=== PATIENT | female | born 2000 | race Two or more races ===

== ENCOUNTER 2023-04-15 10:48 | Emergency (ER) | payer OTHER ==
[~2023-04-15] VITALS: Ht 152.4 cm; Wt 49.9 kg
[~2023-04-15 10:48] MED LIST: [UNRECOGNIZED DRUG - REMARK]
== END 2023-04-15 17:24 | disposition home or self-care (01) ==
LOC: ER 10:48
DX: H00.016 Hordeolum externum left eye, unspecified eyelid (principal); Z88.6 Allergy status to analgesic agent

== ENCOUNTER 2023-07-04 14:32 | Emergency (ER) | payer OTHER ==
[~2023-07-04] VITALS: Ht 152.4 cm; Wt 49.9 kg
[2023-07-04] MEDS ORDERED: PRENA1 TRUE CO1 EACH (15:48)
[2023-07-04] MEDS ORDERED: FOLIC ACID0.8 M1 (15:48)
[2023-07-04 17:16] LABS: HEMATOCRIT 35.7 % (36.0-45.00); HEMOGLOBIN 12.6 g/dL (12.0-15.00); MEAN CELL VOLUME 87.7 fL (80.00-100.00); MEAN CORPUSCULAR HEMOGLOBIN 30.9 pg (27.00-32.0); MEAN CORPUSCULAR HGB CONC 35.2 g/dl (32.0-36.0); PLATELET COUNT 257 K/uL (150-450); RED BLOOD COUNT 4.07 M/uL (4.00-6.00); RED CELL DISTRIBUTION WIDTH 14.3 % (11.5-14.5)
[2023-07-04 17:30] LABS: CALCIUM 9.3 mg/dL (8.5-10.1); CREATININE SERUM 0.51 mg/dL (0.55-1.02); GFR 146.93; POTASSIUM 3.22 mEq/L (3.5-5.1)
[2023-07-04 18:10] LABS: URINE APPEARANCE Cloudy; URINE BILIRRUBIN Negative (NEGATIVE); URINE BLOOD Negative; URINE COLOR Yellow; URINE GLUCOSE Negative (NEGATIVE); URINE LEUKOCYTE Trace; URINE NITRATE Negative; URINE PROTEIN Negative (NEGATIVE)
[2023-07-04 18:14] LABS: URINE EPITHELIAL CELLS 170.2 uL (0.0-38.8); URINE RBC 3.3 uL (0.0-20.8); URINE WBC 159.5 uL (0.0-23.2)
[2023-07-04] MEDS ORDERED: PEPCID AC20 MG PO (18:52)
[2023-07-04] MEDS ORDERED: ZOFRAN8 MG PO (18:52)
== END 2023-07-04 19:12 | disposition home or self-care (01) ==
LOC: ER 14:32
PROVIDERS: General Practice
DX: O26.891 Other specified pregnancy related conditions, first trimester (principal); R11.10 Vomiting, unspecified; R10.84 Generalized abdominal pain; Z3A.12 12 weeks gestation of pregnancy

== ENCOUNTER 2023-09-19 12:59 | Outpatient (CLI) | payer OTHER ==
[~2023-09-19 12:59] MED LIST changes: +FOLIC ACID0.8 M1; +PEPCID AC20 MG PO; +PRENA1 TRUE CO1 EACH; +ZOFRAN8 MG PO
== END 2023-09-19 13:00 | disposition home or self-care (01) ==
LOC: PRENATAL 12:59
PROVIDERS: ATTEND Obstetrics & Gynecology Maternal & Fetal Medicine
DX: O35.3XX0 Maternal care for (suspected) damage to fetus from viral disease in mother, not applicable or unspecified (principal); O44.00 Complete placenta previa NOS or without hemorrhage, unspecified trimester; Z3A.21 21 weeks gestation of pregnancy

== ENCOUNTER 2024-01-12 08:45 | Inpatient (IN) | payer OTHER ==
[~2024-01-12] VITALS: Ht 152.4 cm; Wt 2.7 kg
[2024-01-12] MEDS ORDERED: CEFAZOLIN SODIUM 1,000 MG VIAL IV SCH (09:00)
[2024-01-12] MEDS ORDERED: RINGERS SOLUTION,LACTATED 1,000 ML IV SCH (09:00)
[2024-01-12 09:26] LABS: PH,URINE 6.5 (5.0-8.0); URINE APPEARANCE Clear; URINE BILIRRUBIN Negative (NEGATIVE); URINE BLOOD Negative; URINE COLOR Yellow; URINE GLUCOSE Negative (NEGATIVE); URINE LEUKOCYTE Negative; URINE NITRATE Negative; URINE PROTEIN Negative (NEGATIVE); URINE UROBILINOGEN 0.2 E.U./dl
[2024-01-12 09:27] LABS: HEMATOCRIT 31.7 % (36.0-45.00); HEMOGLOBIN 10.7 g/dL (12.0-15.00); MEAN CORPUSCULAR HEMOGLOBIN 28.1 pg (27.00-32.0); MEAN CORPUSCULAR HGB CONC 33.8 g/dl (32.0-36.0); PLATELET COUNT 339 K/uL (150-450); RED BLOOD COUNT 3.82 M/uL (4.00-6.00); RED CELL DISTRIBUTION WIDTH 14.2 % (11.5-14.5)
[2024-01-12 09:28] LABS: URINE BACTERIA 35.2 uL (0.0-1933); URINE EPITHELIAL CELLS 7.8 uL (0.0-38.8); URINE RBC 6.1 uL (0.0-20.8); URINE WBC 7.1 uL (0.0-23.2)
[2024-01-12 10:12] LABS: INR < 0.93; PARTIAL THROMBOPLASTIN TIME 26.1 SECONDS (22.0-34.0); PROTHROMBIN TIME 9.7 SECONDS (9.0-11.5)
[2024-01-12 10:13] LABS: ALBUMIN 2.9 gm/dL (3.4-5.0); BILIRUBIN TOTAL 0.75 mg/dL (0.3-1.2); CALCIUM 9.2 mg/dL (8.5-10.1); CREATININE SERUM 0.64 mg/dL (0.55-1.02); GFR 113.06; GLOBULINA 4.3 G/DL (2.4-3.5); POTASSIUM 4.41 mEq/L (3.5-5.1); TOTAL PROTEIN 7.2 gm/dL (6.4-8.2)
[2024-01-12] MEDS ORDERED: FERROUS SULFAT325 MG (10:36)
[2024-01-12] MEDS ORDERED: MEPERIDINE HCL/PF 50 MG/ML VIAL IM PRN (13:30)
[2024-01-12] MEDS ORDERED: OXYTOCIN 1,000 ML IV SCH (13:30)
[2024-01-12] MEDS ORDERED: PROMETHAZINE HCL 50 MG/ML AMPUL IM PRN (13:30)
[2024-01-12] MEDS ORDERED: ERYTHROMYCIN BASE 1 GM TUBE OP ONE (14:45)
[2024-01-12] MEDS ORDERED: CHLORHEXIDINE GLUCONATE 120 ML BOTTLE TOP ONE (14:45)
[2024-01-12] MEDS ORDERED: OXYTOCIN 10 UNIT/ML (10ML) IV ONE (14:45)
[2024-01-12] MEDS ORDERED: SIMETHICONE 125 MG CAPSULE PO SCH (18:00)
[2024-01-12 20:02] LABS: HEMATOCRIT 29.7 % (36.0-45.00); MEAN CELL VOLUME 81.5 fL (80.00-100.00); MEAN CORPUSCULAR HEMOGLOBIN 27.4 pg (27.00-32.0); MEAN CORPUSCULAR HGB CONC 33.6 g/dl (32.0-36.0); PLATELET COUNT 269 K/uL (150-450); RED BLOOD COUNT 3.64 M/uL (4.00-6.00); RED CELL DISTRIBUTION WIDTH 14.6 % (11.5-14.5)
[2024-01-13] MEDS ORDERED: DOCUSATE SODIUM 100MG CAP PO SCH (10:23)
[2024-01-13] MEDS ORDERED: ACETAMINOPHEN WITH CODEINE 1 UDTAB TABLET PO PRN (10:30)
[2024-01-13] MEDS ORDERED: CLINDAMYCIN HC300 MG (12:21)
[2024-01-15] MEDS ORDERED: Tylenol #3 PO (09:29)
[2024-01-15] MEDS ORDERED: NAPR500T14 PO (09:29)
== END 2024-01-15 11:37 | disposition home or self-care (01) | DRG 788 ==
LOC: OB/GYN 08:45 → LDR 08:45 → OB/GYN 14:41
PROVIDERS: ADMIT Obstetrics & Gynecology; ATTEND Obstetrics & Gynecology
PROC: 4A1HXCZ Monitoring of Products of Conception, Cardiac Rate, External Approach (ICD-10-PCS; 2024-01-12)
PROC: 10D00Z1 Extraction of Products of Conception, Low, Open Approach (ICD-10-PCS; principal; 2024-01-12 11:30)
DX: O42.02 Full-term premature rupture of membranes, onset of labor within 24 hours of rupture (principal); Z3A.37 37 weeks gestation of pregnancy; Z20.822 Contact with and (suspected) exposure to COVID-19; Z37.0 Single live birth